=== PATIENT | male | born 1940 | race Caucasian/White ===

== ENCOUNTER 2023-09-21 22:45 | Inpatient (IN) | payer OTHER, SELFPAY ==
[2023-09-21] VITALS (9 sets, daily range): BP systolic 104–146; BP diastolic 62–119; BMI 26.2
[2023-09-21 17:20] LABS: % Basophils 0.2 % (0-2); % Eosinophils 0.1 % (0-6); % Immature Granulocytes 0.5 % (0-0.5); % Lymphocytes 9.2 % (20.5-51.1); % Monocytes 5.7 % (1.7-9.3); % Neutrophils 84.3 % (42.2-75.2); Absolute Immature Granulocytes 0.1 10^3/uL (0-0.05); Absolute Lymphocytes 1.4 10^3/uL (1.2-3.4); Absolute Monocytes 0.9 10^3/uL (0.1-0.6); Absolute Neutrophils 12.7 10^3/uL (1.4-6.5); Hematocrit 40.1 % (39.0-52.0); Hemoglobin 13.8 g/dL (13.0-18.0); Mean Corp Hgb Conc. 34.4 g/dL (33.0-37.0); Mean Corpuscular Hgb 30.3 pg (27.0-31.0); Mean Corpuscular Volume 88.1 fL (80.0-94.0); Mean Platelet Volume 10.2 fL (7.4-10.4); Nucleated Red Blood Cells % 0 % (-); Platelet Count 188 10^3/uL (130-400); Red Blood Cell Count 4.55 10^6/uL (4.70-6.10); Red Cell Dist. Width 15.3 % (11.5-14.5); White Blood Cell Count 15.1 10^3/uL (4.8-10.8)
[2023-09-21 17:28] LABS: Urine Albumin Negative (Neg - Trace); Urine Bilirubin Negative (Negative); Urine Character Clear (Clear); Urine Color Yellow; Urine Glucose Negative (Negative); Urine Ketone Negative (Negative); Urine Leukocyte Negative (Negative); Urine Nitrite Negative (Negative); Urine Occult Blood Negative (Negative); Urine Urobilinogen Negative (Neg - 1+)
[2023-09-21 17:35] LABS: ALT (SGPT) 17 U/L (0-50); AST (SGOT) 21 U/L (17-59); Albumin 3.4 g/dl (3.5-5.0); Alkaline Phosphatase 87 U/L (38-126); Blood Urea Nitrogen 16 mg/dl (9-20); Carbon Dioxide 23 mmol/L (22-30); Chloride 98 mmol/L (98-107); Estimated Creatinine Clearance 64 ml/min; Glucose 114 mg/dl (70-99); Potassium 4.2 mmol/L (3.5-5.1); Sodium 132 mmol/L (135-145); Total Bilirubin 1.3 mg/dl (0.2-1.3); Total Protein 6.7 g/dl (6.3-8.2); eGFR > 60.00
[2023-09-21 17:39] LABS: COVID-19 Antigen Negative (Negative)
[2023-09-21 18:03] LABS: Lactic Acid 0.9 mmol/L (0.7-2.0)
--- NOTE | 2023-09-21 18:35 | ED.GENMED ---
History of Present Illness
General
Chief Complaint: Change in Mental Status
Source: patient and longterm
Exam Limitations: dementia
Time Seen by Provider: 09/21/23 16:40
Nursing documentation reviewed up to this point in time: agreed with
Travel History
Have you had any contact with someone who has COVID-19?: No
Do you have any symptoms of coronavirus? Fever > 100 degrees, chills, cough, shortness of breath, sore throat, loss of taste or smell, muscle aches, or headache?: No
History of Present Illness
History of Present Illness:
PT IS A83 Y/O M with h/o dementia, htn, hld, diverticulitis, RA on dallin, just had dose recently increased;
here with fever and lethargy today
pt is usually more alert and can take care of himself well, but has been more sleepy. pt was found to have fever 101.8 and was given tylenol
he has not had any cough, vomiting, diarrhea, abdomial pain.
pt doesn't think he has had any change in mental status
but this was written on a note from a provider who examined him today
he apparnetly has a zuniga's cyst in the right leg which has caused swelling. there is no US report.
pt has h/o pneumonia causing hypoxia and confusion similar to this
daughter is RN
says ajylyn tthis is how he has presented here before
pt has no complaints, denies abdomianl pain.
Past History
Past History
ED Past Medical History: HTN, Hypercholesterolemia and Other (Rheumatoid arthritis, vascular dementia, diverticulitis)
ED Past Surgical History: Negative Cardiac
Social History
Tobacco: Non-smoker
Alcohol: Occasional
Drug: None
Personal:
Living: alone
Employment: Retired
Family History
Family History: Other (Noncontributory)
Review of Systems
Review of Systems
Allergies reviewed?: Yes
Unable to obtain full review of systems at this time due to: dementia
All Other Systems: Not applicable
Phy Exam
Physical Exam
Physical Exam:
GENERAL: Alert , in no apparent distress, nontoxic, slightly confused
EYE: pupils equal and reactive
NECK: Supple
ENT: o/p clr, mmm.
CARDIAC: Regular rate and rhythm ., Edema in the right calf
LUNGS: Clear breath sounds bilaterally, no acute respiratory distress, no wheezes/rales/rhonchi
ABDOMEN: Soft, without focal tenderness, no r/g, no cvat, normal bowel sounds
NEUROLOGICAL: Alert and oriented nx 2, disoriented to situation and time; thinks it is 2010; moving all extremities; no facial assymetry,, no focal neuro deficits
SKIN: Warm and dry, skin intact.
MUSCULOSKELETAL: Moderate edema in the right calf, normal pulse, no skin changes
PSYCH: Normal and appropriate interaction.
Course
Orders/Labs/Results
Orders:
Orders
09/21/23 17:12
COVID-19 Antigen Urgent
Source: Nasal Swab
Complete Blood Count/With Diff Urgent
Comprehensive Metabolic Panel Urgent
Influenza A+B Rapid Molecular Urgent
HERON Source: Nasal Swab
Specimen Description:
09/21/23 17:13
Urinalysis Reflex To Culture Urgent
Date Specimen was Collected: 09/21/23
Time Specimen was Collected: 17:11
09/21/23 17:42
Lactic Acid Urgent
Blood Culture Q30M
HERON Source: Blood/Venous
Specimen Description:
Blood Culture Q30M
HERON Source: Blood/Venous
Specimen Description:
09/21/23 17:53
Venous Doppler Lwr Ext Rt [US Perip Venous LOWER Ext RT] Urgent
Comment:
Reason For Exam: swollen leg
09/21/23 17:54
CT Chest Pe Study Urgent
Comment:
Reason For Exam: swollen leg, hypoxia, fever
09/21/23 21:58
Azithromycin 500 mg/250 ml [Zithromax Infusion] 500 mg in 250 ml IV NOW
CefTRIAXone [Rocephin] 1,000 mg IV NOW STA
09/21/23 22:02
Electrocardiogram (*1) Urgent
Reason for Study: QTc Monitoring
EKG- Treatment ONCE
09/21/23 22:33
Admit/Transfer Patient As Directed
Co-Sign Provider:
Level of Care: Inpatient admission
Assign to:: Medical/Surgical
Physician / Group: bc
Diagnosis: sepsis pneumonia
Reason for Hospitalization: sepsis pneumonia
Expected length of stay greater than two midnights?: Yes
ELOS- Estimated Length of Stay in days: 2
I certify the patient meets the requirements for IP care: Yes
Code Status As Directed
Resuscitation Status: Do not resuscitate
Reached after discussion with pt or family/Healthcare POA: Yes
DNR Bracelet Application ONCE
09/21/23 22:36
Sputum Culture [Respiratory Culture/Gram Stain] Urgent
HERON Source: Sputum
Specimen Description:
09/22/23 00:01
0.9% Sodium Chloride 1000 ml [Nss] 1,000 ml IV 100 mls/hr
Azithromycin 500 mg/250 ml [Zithromax Infusion] 500 mg in 250 ml IV Q24H
CefTRIAXone [Rocephin] 1,000 mg IV Q24H
09/22/23 00:01
Activity As Directed
Activity Level: As Tolerated
Vital Signs As Directed
Frequency: Per unit guidelines
DX Deep Vein Thrombosis Video Routine
09/22/23 06:00
Complete Blood Count/With Diff IN AM
Comprehensive Metabolic Panel IN AM
09/22/23 08:00
Heparin 5,000 units SC Q12
09/22/23 Dinner
Regular
At Your Request: Full Participation
Does patient need a safe tray?: No
Abnormal Lab Results
09/21/23
17:12
WBC 15.1 H 10^3/uL
(4.8-10.8)
RBC 4.55 L 10^6/uL
(4.70-6.10)
RDW 15.3 H %
(11.5-14.5)
Abs Immat Gran (auto) 0.1 H 10^3/uL
(0-0.05)
Absolute Neuts (auto) 12.7 H 10^3/uL
(1.4-6.5)
Absolute Monos (auto) 0.9 H 10^3/uL
(0.1-0.6)
Neutrophils % 84.3 H %
(42.2-75.2)
Lymphocytes % 9.2 L %
(20.5-51.1)
Sodium 132 L mmol/L
(135-145)
Glucose 114 H mg/dl
(70-99)
Albumin 3.4 L g/dl
(3.5-5.0)
09/21/23 17:12
09/21/23 17:12
Vital Signs
Initial and Last Documented VS:
Initial Vital Signs
Temp Pulse Resp BP Pulse Ox
99.1 F 65 19 122/73 90
09/21/23 16:44 09/21/23 16:44 09/21/23 16:44 09/21/23 16:44 09/21/23 16:44
Last Documented Vital Signs
Temp Pulse Resp BP Pulse Ox
98.8 F 69 18 122/69 95
09/22/23 00:15 09/22/23 00:15 09/22/23 00:15 09/22/23 00:15 09/22/23 00:15
MDM/Problems Addressed
Differential Diagnosis Includes:
pneumonia, flu, covid, uti, sepsis
MDM/Problems Addressed:
83 y/o M with h/o dementia, RA on humira
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
usually can make it to the bathroom but was incontinent of urine
no other complaints
slightly confused here, hypoxic 89% on ra and normally doesn't require o2
lungs sounded diminished but nothing focal; abdomen benign
no back tenderness
full ROM of the legs, normal strength
wbc 15
flu/covid neg
ua neg
right leg is swollen
dopplerneg
pt's daughter helpful historian
says that has had similar admissino for hypoxia and fever and change in mental status when he had pneummonia
ct does not show any obiouvs pna but some atelectasis and opacity minimal
but with his hypoxic will cover with abx, pt is high risk because of his immunocompromised state
*Critical Care Note
Total Time (30-74mins, 75-104mins- exclusive of procedures): Not Applicable
ED Attending Note
-
Portions of this chart may have been created with voice recognition software.� Occasional wrong word or��sound alike� substitutions may have occurred due to the inherent limitations of voice recognition software.
Discharge Plan
Departure
Patient Disposition: Admit
Date of Disposition: 09/21/23
Time of Disposition: 22:00
Admit to: Med/Surg
Presentation/result/management discussed w/ accepting MD/DO: Hospitalist
Condition: Fair
Covid-19: Not Applicable
Discharge Problem:
Fever, Acute confusion, Hypoxia
Interventions
Interventions:
*Risk Screen - Suicide Last Done: 09/21/23 16:44
*General Assessment Last Done: 09/21/23 16:44
*Neglect/Abuse Screening Last Done: 09/21/23 16:44
ED- Fall Risk Assessment Last Done: 09/21/23 19:50
*ED COVID-19 Vaccine History Last Done: 09/21/23 23:57
*Nursing Disposition Last Done: 09/21/23 23:57
ED- Pulmonary Assessment Last Done: 09/21/23 19:50
ED-Psychological Assessment Last Done: 09/21/23 23:57
ED- Neurological Assessment Last Done: 09/21/23 19:50
ED- Cardiac Assessment Last Done: 09/21/23 19:50
ED Swallowing Screen Last Done: 09/21/23 23:57
Discharge Date and Time
Discharge Date/Time: 09/21/23 23:58
[2023-09-21] MEDS: ROCEPHIN 1000 MG IV (22:08)
[2023-09-21] MEDS: ZITHROMAX INFUSION 250 IV (22:09)
--- NOTE | 2023-09-21 22:36 | HPS.HSE ---
Family Physician
-
Family Physician: Fozia Lozano
Chief Complaint
-
altered mental status
History of Present Illness
83-year-old male past medical history of dementia, hypertension, hyperlipidemia, diverticulitis, rheumatoid arthritis, presenting from [facility] with fever and altered mental status today. He was found to have fever of 101.8
and was given Tylenol. He was also found to be a little bit more hypoxic than usual saturating around 86%. He did have cough for the past few days but no shortness of breath. No chest pain. No nausea or vomiting or diarrhea. He did have an
episode of stool incontinence today however. Denies any sore throat.
He was recently discovered to have a Newell's cyst in his right popliteal fossa which is causing some discomfort when he ambulates.
Medical History
Past Medical History
Past Medical History: Reports Other (dementia, hypertension, hyperlipidemia, diverticulitis, rheumatoid arthritis)
Past Surgical History: Reports None
Social History
Tobacco: Non-smoker
Alcohol: Occasional
Drug: None
Family History
Family History: Not pertinent
Allergies / Home Medications
Allergies reflects when Allergies were last updated in [facility].
Home Medications with original date entered in [facility]
Allergy/Medication List:
Allergies
Allergy/AdvReac Type Severity Reaction Status Date / Time
No Known Allergies Allergy Verified 01/15/23 17:05
Home Medications
adalimumab 40 mg/0.8 mL subcutaneous pen kit (Humira Pen) 40 mg SC Q2W Autoimmune disorder 09/04/22
cetirizine 10 mg tablet (Zyrtec) 10 mg PO DAILY Allergies 09/04/22
cholecalciferol (vitamin D3) 25 mcg (1,000 unit) tablet (Vitamin D3) 25 mcg PO DAILY Supplement 09/04/22
folic acid 1 mg tablet 1 mg PO DAILY Supplement 09/04/22
losartan 25 mg tablet 25 mg PO DAILY Blood pressure 09/04/22
methotrexate sodium 2.5 mg tablet 7.5 mg PO WEEKLY Autoimmune disorder 09/04/22
pantoprazole 20 mg tablet,delayed release 20 mg PO DAILY GERD 09/04/22
polyethylene glycol 3350 17 gram oral powder packet (Miralax) 17 g PO DAILYPRN PRN constipation 09/04/22
acetaminophen 500 mg tablet 1,000 mg PO Q8HPRN PRN fever 05/29/23
Review of Systems
-
History Source: Patient
A 12 point ROS was completed and negative except as noted: Yes
Constitutional: Reports No Symptoms
EENT: Reports No Symptoms
Respiratory: Reports See HPI
Cardiac: Reports No Symptoms
Abdomen/GI: Reports No Symptoms
: Reports No Symptoms
Musculoskeletal: Reports No Symptoms
Skin: Reports No Symptoms
Neurological: Reports No Symptoms
Endocrine: Reports No Symptoms
Hematologic/Lymphatic: Reports No Symptoms
Psych: Reports No Symptoms
Physical Exam
Vital Signs
Vital Signs
Temp Pulse Resp BP Pulse Ox
99.1 F 77 23 124/72 93
09/21/23 16:44 09/21/23 22:30 09/21/23 22:30 09/21/23 22:00 09/21/23 22:30
Physical Exam
General: Well Developed, Well Nourished and No Apparent Distress
HEENT: NormoCephalic, Moist mucous membranes and Atraumatic
Respiratory: Clear
Cardiac: S1/S2 and Regular Rhythm; No Murmur or Rub
GI: Soft, Non Tender, Non Distended and Normal Bowel Sounds; No Organomegaly
Rectal: Deferred by Provider
Musculoskeletal: No Clubbing, No Cyanosis and No Edema
Skin: No Rash
Neuro: Nonfocal/grossly intact
Laboratory Results
-
09/21/23 17:12
09/21/23 17:12
Laboratory Results
Lactic Acid 0.9 mmol/L (0.7-2.0) 09/21/23 17:42
Total Bilirubin 1.3 mg/dl (0.2-1.3) 09/21/23 17:12
AST 21 U/L (17-59) 09/21/23 17:12
ALT 17 U/L (0-50) 09/21/23 17:12
Alkaline Phosphatase 87 U/L (38-126) 09/21/23 17:12
Data Reviewed
-
Lab Data: Labs Reviewed by me
Old Records: Reviewed
Impression/Plan
-
IMPRESSION:
PLAN:
# Sepsis (fever at home, leukocytosis) secondary to likely pneumonia
-Urinalysis negative
-COVID and influenza negative
-CT PE shows moderate elevation of right hemidiaphragm, band of atelectasis within the right middle lobe, dependent atelectasis within both lungs although clinically consistent with pneumonia
-IV fluids
-Check sputum culture
-Ceftriaxone/azithromycin
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
-Symptomatic with ambulation
-Can follow-up with orthopedic/rheumatology for drainage
Dementia
Essential hypertension
-Continue losartan
Rheumatoid arthritis
-Continue methotrexate
Hyperlipidemia
History of diverticulitis
GERD
-Continue Protonix
DNR/DNI
DVT prophylaxis�heparin
Regular diet
[2023-09-22 00:15] VITALS: BP 122/69; BMI 28.5
[2023-09-22] MEDS: NSS 1000 IV ×3 (00:50→23:12)
[2023-09-22 06:07] LABS: % Basophils 0.3 % (0-2); % Eosinophils 0.8 % (0-6); % Immature Granulocytes 0.4 % (0-0.5); % Lymphocytes 18.6 % (20.5-51.1); % Monocytes 8.7 % (1.7-9.3); % Neutrophils 71.2 % (42.2-75.2); Absolute Eosinophils 0.1 10^3/uL (0-0.7); Absolute Lymphocytes 1.9 10^3/uL (1.2-3.4); Absolute Monocytes 0.9 10^3/uL (0.1-0.6); Absolute Neutrophils 7.4 10^3/uL (1.4-6.5); Hematocrit 37.6 % (39.0-52.0); Hemoglobin 12.7 g/dL (13.0-18.0); Mean Corp Hgb Conc. 33.8 g/dL (33.0-37.0); Mean Corpuscular Hgb 30.8 pg (27.0-31.0); Mean Corpuscular Volume 91.3 fL (80.0-94.0); Mean Platelet Volume 10.3 fL (7.4-10.4); Nucleated Red Blood Cells % 0 % (-); Platelet Count 175 10^3/uL (130-400); Red Blood Cell Count 4.12 10^6/uL (4.70-6.10); Red Cell Dist. Width 15.3 % (11.5-14.5); White Blood Cell Count 10.4 10^3/uL (4.8-10.8)
[2023-09-22 06:40] LABS: ALT (SGPT) 16 U/L (0-50); AST (SGOT) 20 U/L (17-59); Albumin 3.2 g/dl (3.5-5.0); Alkaline Phosphatase 87 U/L (38-126); Blood Urea Nitrogen 13 mg/dl (9-20); Calcium 8.3 mg/dl (8.4-10.2); Carbon Dioxide 22 mmol/L (22-30); Chloride 105 mmol/L (98-107); Estimated Creatinine Clearance 63 ml/min; Glucose 99 mg/dl (70-99); Potassium 3.9 mmol/L (3.5-5.1); Sodium 133 mmol/L (135-145); Total Bilirubin 1.1 mg/dl (0.2-1.3); Total Protein 6.2 g/dl (6.3-8.2); eGFR > 60.00
[2023-09-22 07:10] VITALS: BP 111/54
[2023-09-22] MEDS: HEPARIN 5000 UNITS SC ×2 (07:59→20:49)
--- NOTE | 2023-09-22 08:37 | W.PN.HOSP.TC ---
Today's Communication/Plan
-
see bold
Assessment / Plan
Assessment / Plan
Gen: NAD, Awake and alert
Eyes: EOMI, PERRLA, no scleral icterus.
Neck: supple.
CV: RRR, +S1/S2, no m/r/g.
Resp: CTAB, no rales, wheezes, or rhonchi.
Abd: +BS, soft, NT, ND
Skin: No rashes.
Neuro: CN 2-12 intact, non-focal.
Psych: Normal mood and affect.
Sepsis (fever at home, leukocytosis) possibly due to pneumonia:
-Urinalysis negative
-COVID and influenza negative
-CT PE shows moderate elevation of right hemidiaphragm, band of atelectasis within the right middle lobe, dependent atelectasis within both lungs although clinically consistent with pneumonia
-cont IV fluids
-Check sputum culture
-cont Ceftriaxone/azithromycin
-check procal
Other problems:
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 Can follow-up with orthopedic/rheumatology for drainage.
Dementia
Essential hypertension: Holding home losartan Continue losartan
Rheumatoid arthritis: hold home methotrexate
Hyperlipidemia
Hyponatremia
History of diverticulitis
GERD: Continue Protonix
DNR/DNI/heparin
Anticipated Discharge: 24 - 48 hours
Subjective/Interval History
-
Date of Service: September 22, 2023
Denies CP/SOB/abd pain.
Objective Data
-
Labs:
Laboratory Results
09/22/23
04:55
WBC 10.4
Hgb 12.7 L
Hct 37.6 L
Plt Count 175
Sodium 133 L
Potassium 3.9
Chloride 105
Carbon Dioxide 22
BUN 13
Creatinine 0.7
Glucose 99
Calcium 8.3 L
Total Bilirubin 1.1
AST 20
ALT 16
Alkaline Phosphatase 87
Vital Signs:
Vital Signs
Temp Pulse Resp BP Pulse Ox
98.4 F 57 16 111/54 95
09/22/23 07:10 09/22/23 07:10 09/22/23 07:10 09/22/23 07:10 09/22/23 07:10
I&O
09/21/23 09/22/23 09/23/23
06:59 06:59 06:59
Intake Total 700 / 700
Balance 700 / 700
[2023-09-22 09:45] LABS: Procalcitonin < 0.05 ng/ml (0.0-0.25)
--- NOTE | 2023-09-22 10:46 | CM ---
Reviewed the chart notes and spoke with the patient at the bedside and daughter Nina via telephone. The patient resides alone in personal care at [facility]. The patient's spouse is in a locked memory care unit at [facility]. The patient
reports no assisted device needed with ambulation. The patient has had [facility] VN in the past. No SNF. The patient's pharmacy is the listed [facility]. The patient currently is on supplemental O2. continues to be available to
patient/family and is monitoring medical plan for needs at discharge.
Plan: Discharge plans will depend on the patient's progress. Home with possible need for VN vs SNF.
[2023-09-22 15:10] VITALS: BP 111/60
[2023-09-22] MEDS: ZITHROMAX INFUSION 250 IV (23:03)
[2023-09-22] MEDS: STERILE WATER FOR INJECTION 10 ML IV (23:03)
[2023-09-22] MEDS: ROCEPHIN 1000 MG IV (23:03)
[2023-09-22 23:27] VITALS: BP 134/68
[2023-09-23 07:25] VITALS: BP 136/76
[2023-09-23] MEDS: HEPARIN 5000 UNITS SC ×2 (10:17→19:49)
[2023-09-23] MEDS: NSS 1000 IV (10:48)
[2023-09-23] MEDS: FLUSH (NSS) 1 FLUSH IV (10:48)
--- NOTE | 2023-09-23 13:14 | W.PN.HOSP.TC ---
Addendum entered and electronically signed by Chris Salas MD 09/23/23 13:47:
Total time spent on d/c = 31 min. This included today's physical exam, progress note, review of laboratory and diagnostic data, preparation of discharge documents and prescriptions, and discussions about the pt's hospital course and discharge plan
with the patient and other medical administrator involved in the patient's care.
Original Note:
Today's Communication/Plan
-
d/c
Assessment / Plan
Assessment / Plan
Gen: NAD, Awake and alert
Eyes: EOMI, PERRLA, no scleral icterus.
Neck: supple.
CV: remains RRR, +S1/S2, no m/r/g.
Resp: remains CTAB, no rales, wheezes, or rhonchi.
Skin: No rashes.
Neuro: CN 2-12 intact, non-focal.
Psych: Normal mood and affect.
09/21/23 17:42 Blood/Venous Blood Culture - Preliminary
No Growth in 24 hours- Final report to follow
09/21/23 17:42 Blood/Venous Blood Culture - Preliminary
No Growth in 24 hours- Final report to follow
09/21/23 17:12 Nasal Swab Influenza Types A & B (KARLO) - Final
Negative for Influenza A & B, NAAT
Negative results must be combined with clinical observations
and patient history.
Nucleic Acid Amplification test (NAAT)performed on the
[employer] NOW platform.
Sepsis (fever at home, leukocytosis) possibly due to viral pneumonia:
-Urinalysis negative
-COVID and influenza negative
-CT PE shows moderate elevation of right hemidiaphragm, band of atelectasis within the right middle lobe, dependent atelectasis within both lungs although clinically consistent with pneumonia
-s/p IVFs
-Procal NEG, stop abx. If pt has PNA it's viral (bacterial PNA has been ruled out)
Other problems:
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 Can follow-up with orthopedic/rheumatology for drainage.
Dementia
Essential hypertension: Holding home losartan Continue losartan
Rheumatoid arthritis: hold home methotrexate
Hyperlipidemia
Hyponatremia
History of diverticulitis
GERD: Continue Protonix
DNR/DNI/heparin
Medically stable for d/c. Case management aware.
Anticipated Discharge: Today
Subjective/Interval History
-
Date of Service: September 23, 2023
Denies CP/SOB.
Objective Data
-
Vital Signs:
Vital Signs
Temp Pulse Resp BP Pulse Ox
98.0 F 62 18 136/76 93
09/23/23 07:25 09/23/23 07:25 09/23/23 07:25 09/23/23 07:25 09/23/23 08:30
I&O
09/22/23 09/23/23 09/24/23
06:59 06:59 06:59
Intake Total 700 / 700 3820 / 3820
Output Total 1100 / 1100
Balance 700 / 700 2720 / 2720
--- NOTE | 2023-09-23 13:45 | CM ---
IMM signed and placed on the chart.
[2023-09-23 15:20] VITALS: BP 153/76
[2023-09-23 23:17] VITALS: BP 153/89
[2023-09-24 07:30] VITALS: BP 145/76
--- NOTE | 2023-09-24 08:26 | W.PN.HOSP.TC ---
Today's Communication/Plan
-
d/c
Assessment / Plan
Assessment / Plan
Gen: remains NAD, Awake and alert
Eyes: EOMI, PERRLA, no scleral icterus.
Neck: supple.
CV: continues to remain RRR, +S1/S2, no m/r/g.
Resp: continues to remain CTAB, no rales, wheezes, or rhonchi.
Skin: No rashes.
Neuro: CN 2-12 intact, non-focal.
Psych: Normal mood and affect.
09/21/23 17:42 Blood/Venous Blood Culture - Preliminary
No Growth in 48 hours- Final report to follow
09/21/23 17:42 Blood/Venous Blood Culture - Preliminary
No Growth in 48 hours- Final report to follow
09/21/23 17:12 Nasal Swab Influenza Types A & B (KARLO) - Final
Negative for Influenza A & B, NAAT
Negative results must be combined with clinical observations
and patient history.
Nucleic Acid Amplification test (NAAT)performed on the
[employer] NOW platform.
Sepsis (fever at home, leukocytosis) possibly due to viral pneumonia:
-Urinalysis negative
-COVID and influenza negative
-CT PE shows moderate elevation of right hemidiaphragm, band of atelectasis within the right middle lobe, dependent atelectasis within both lungs although clinically consistent with pneumonia
-s/p IVFs
-weaned to RA
-Procal was NEG and abx stopped 09/23/24. If pt has PNA it's viral (bacterial PNA has been ruled out)
Other problems:
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 Can follow-up with orthopedic/rheumatology for drainage.
Dementia
Essential hypertension: Holding home losartan Continue losartan
Rheumatoid arthritis: hold home methotrexate
Hyperlipidemia
Hyponatremia
History of diverticulitis
GERD: Continue Protonix
DNR/DNI/heparin
Remains medically stable for d/c (was discharged 09/23/23). Case management aware.
Anticipated Discharge: Today
Subjective/Interval History
-
Date of Service: September 24, 2023
No new complaints.
Objective Data
-
Vital Signs:
Vital Signs
Temp Pulse Resp BP Pulse Ox
98.2 F 57 18 145/76 92
09/24/23 07:30 09/24/23 07:30 09/24/23 07:30 09/24/23 07:30 09/24/23 07:30
I&O
09/23/23 09/24/23 09/25/23
06:59 06:59 06:59
Intake Total 3820 / 3820 870 / 870
Output Total 1100 / 1100 1700 / 1700
Balance 2720 / 2720 -830 / -830
[2023-09-24] MEDS: HEPARIN 5000 UNITS SC (09:19)
[2023-09-24 10:19] VITALS: BP 140/73; PULSE 60; O2SAT 94
--- NOTE | 2023-09-24 10:40 | CM ---
Reviewed the chart notes. Patient ambulated 100' without assistive device. Referral sent yesterday to [facility]. CM continues to be available to patient/family and is monitoring medical plan for needs at discharge.
Plan: Discharge back to home [facility] at [facility]. Daughter will provide transportation.
Call report to: [phone]
Fax report to: [phone].
--- NOTE | 2023-10-19 15:17 | W.DCSUMMARY ---
Discharge Summary
Discharge Data
Date of Admission: 09/21/23
Date of Discharge: 09/24/23
-
Pending Results: No
Hospital Course
Primary diagnoses:
Sepsis possibly due to viral pneumonia
Acute metabolic encephalopathy
Secondary diagnoses:
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
Dementia
Essential hypertension
Rheumatoid arthritis
Hyperlipidemia
Hyponatremia
History of diverticulitis
Gastroesophageal reflux disease
Consultants:
None
Imaging:
CTA chest: Moderate motion artifact, significantly limiting evaluation of the distal segmental and subsegmental pulmonary arteries. The central pulmonary arteries are well-opacified, and there is no evidence for central pulmonary embolism. Thoracic
aorta is fairly well opacified with no evidence for thoracic aortic dissection or thoracic aortic aneurysm. Moderate elevation right hemidiaphragm, similar to prior CT. Band of atelectasis within the right middle lobe. Dependent atelectasis within
both lungs. Moderate hiatal hernia/partially intrathoracic stomach, extending into the medial aspect of the left lower hemithorax.�
RLE U/S: No evidence of deep venous thrombosis of the right lower extremity. Complex fluid collection in the right popliteal fossa and extending into the proximal calf, which is likely a complex Newell's cyst with proximal calf extension.
Hospital course: 83-year-old male who presented with change in mental status as outlined in the H&P done on admission. Urinalysis was negative. COVID and influenza testing were negative. Imaging above. Prior to admission the patient had a fever.
He was afebrile during hospitalization. Patient was treated with Rocephin and azithromycin. Procalcitonin was negative and bacterial pneumonia was ruled out. Patient did require supplemental oxygen and he was weaned to room air. He was
discharged medically stable condition.
Discharge Plan
-
Patient Disposition: Home with Home Care
Discharge Diagnosis/Procedures: Viral pneumonia
Condition: Good
Diet: No restrictions
Activity: As tolerated
Driving Restrictions: No driving
Others Tests: Chest x-ray in 4 weeks, prescription from PCP
Referrals:
Fozia Lozano MD [Family Provider] - in less than 1 week
Prescriptions:
Continued
polyethylene glycol 3350 [Miralax] 17 gram Powder In Packet
17 g PO DAILYPRN PRN (Reason: constipation)
cetirizine [Zyrtec] 10 mg Tablet
10 mg PO DAILY
pantoprazole 20 mg Tablet,Delayed Release (Dr/Ec)
20 mg PO DAILY
methotrexate sodium 2.5 mg tablet
7.5 mg PO WEEKLY
Hold Instructions: Resume on 03/04/23. restart after completion of antibiotics.
losartan 25 mg tablet
25 mg PO DAILY
folic acid 1 mg Tablet
1 mg PO DAILY
Humira Pen 40 mg/0.8 mL pen injector kit
40 mg SC Q2W
Hold Instructions: Resume on 03/03/23. restart after completion of antibiotics
cholecalciferol (vitamin D3) [Vitamin D3] 25 mcg (1,000 unit) Tablet
25 mcg PO DAILY
acetaminophen 500 mg Tablet
1,000 mg PO Q8HPRN PRN (Reason: fever)
Discharge Orders:
Discharge Patient (As Directed); Ordered 09/23/23
Ordered By: Chris Salas
Discharge Date and Time
Discharge Date/Time: 09/24/23 13:12
== END 2023-09-24 13:12 | disposition home health service (06) | DRG 871 ==
LOC: 2 NORTH 22:45
PROVIDERS: Physician Assistant; ADMITTING PHYSICIAN Hospitalist; ATTENDING PHYSICIAN Internal Medicine; EMERGENCY PHYSICIAN Student in an Organized Health Care Education/Training Program; FAMILY PHYSICIAN Internal Medicine Geriatric Medicine
DX: A41.9 Sepsis, unspecified organism (principal); J18.9 Pneumonia, unspecified organism; E87.1 Hypo-osmolality and hyponatremia; Z11.52 Encounter for screening for COVID-19; Z66 Do not resuscitate; I10 Essential (primary) hypertension; M06.9 Rheumatoid arthritis, unspecified; K21.9 Gastro-esophageal reflux disease without esophagitis; E78.00 Pure hypercholesterolemia, unspecified
CPT/HCPCS: 71275; 80053; 81003; 83605; 84145; 85025; 87040; 87502; 87811; 93005; 93971; 96365; 96375; 97162; 99285; Q9967

== ENCOUNTER → 2023-11-20 09:54 | Outpatient (REF) | payer OTHER, SELFPAY | LOC: RAD 09:54 | PROVIDERS: ATTENDING PHYSICIAN Internal Medicine; FAMILY PHYSICIAN Internal Medicine | DX: Z87.01 Personal history of pneumonia (recurrent) (principal) | CPT/HCPCS: 74230; 92611 ==